=== PATIENT | female | born 1980 | race Caucasian/White ===

== ENCOUNTER → 2020-03-11 14:35 | Outpatient (CLI) | payer MEDICAID, SELFPAY ==
--- NOTE | 2020-03-11 14:39 | MM_ITS ---
PROCEDURE: MM DIG MAMM BI DX W/CAD Digital Breast Tomosynthesis Included CLINICAL INDICATION: RT NIPPLE DISCHARGE,DERMATITIS COMPARISON: US US BREAST RT COMPLETE from 03/11/2020 TECHNIQUE: Standard CC and MLO images and 3D Tomosynthesis was obtained. R2 CAD reviewed. FINDINGS: Average breast tissue density. No malignant appearing mass or malignant-appearing microcalcification is evident. Right breast ultrasound: Unremarkable. No cyst or solid lesions evident. IMPRESSION: BI-RAD Category: 1 Negative FOLLOW-UP: 1YR 1 Year Follow-up Any palpable nodule should be managed on a clinical basis. Negative mammogram and negative ultrasound does not exclude the possibility of malignancy.. (A letter has been sent to the patient regarding results of the study.) Dictated by: Jefry Burt MD 03/17/2020 11:27 Jefry Burt MD in [place] 03/17/2020 11:27
== END ==
PROVIDERS: PCP Nurse Practitioner Family; Visit Provider Nurse Practitioner Family
DX: N64.4 Mastodynia (principal); N64.52 Nipple discharge; L30.9 Dermatitis, unspecified
CPT/HCPCS: 76641; 77062; 77066; G0279

== ENCOUNTER → 2020-03-17 10:59 | Outpatient (CLI) | payer MEDICAID, SELFPAY ==
--- NOTE | 2020-03-17 11:02 | US_ITS ---
PROCEDURE: US THYROID CLINICAL INDICATION: THYROID NODULE COMPARISON: No exams were available for comparison FINDINGS: Right lobe: Measures 0.9 x 3.9 x 1.6 cm and shows homogeneous echogenicity. The right parathyroid gland is well visualized and appears normal. There are no cystic or solid nodules seen in the right lobe. Left lobe: The left lobe measures 1.0 x 3.3 x 1.3 cm and shows homogeneous echogenicity. The left parathyroid is not image. Isthmus: The isthmus measures 0.3 cm. Additional findings: None IMPRESSION: Grossly normal appearing thyroid gland and right parathyroid gland Dictated by: Dr. Rafal Moon MD 03/17/2020 14:58 Dr. Rafal Moon MD in [place] 03/17/2020 14:58
== END ==
PROVIDERS: PCP Nurse Practitioner Family; Visit Provider Nurse Practitioner Family
DX: E04.1 Nontoxic single thyroid nodule (principal)
CPT/HCPCS: 76536